=== PATIENT | male | born 1980 | race Two or more races ===

== ENCOUNTER 2023-01-11 10:03 | Emergency (ER) | payer MEDICAID ==
[~2023-01-11] VITALS: Ht 172.7 cm; Wt 77.3 kg
[2023-01-11 10:20] VITALS: TEMP 98.5
[2023-01-11] MEDS ORDERED: MIRT-92 PO (10:22)
[2023-01-11] MEDS ORDERED: GABA-1181 PO (10:22)
[2023-01-11] MEDS ORDERED: HYDR-4808 PO (10:22)
[2023-01-11] MEDS ORDERED: LORazepam 1 MG TABLET PO ONE (13:30)
[2023-01-11] MEDS ORDERED: CHLO10CA7 PO (14:06)
[2023-01-11 14:28] VITALS: BP 111/77; PULSE 81; RESP 16
== END 2023-01-11 14:31 | disposition home or self-care (01) ==
LOC: EMS 10:08
DX: F10.20 Alcohol dependence, uncomplicated (principal); F41.9 Anxiety disorder, unspecified
CPT/HCPCS: 99283

== ENCOUNTER 2023-01-13 18:18 | Emergency (ER) | payer MEDICAID ==
[~2023-01-13] VITALS: Ht 172.7 cm; Wt 77.3 kg
[~2023-01-13 18:18] MED LIST: CHLO10CA7 PO; GABA-1181 PO; HYDR-4808 PO; MIRT-92 PO
[2023-01-13 18:24] VITALS: BP 124/93; PULSE 124; RESP 18; TEMP 98
== END 2023-01-13 19:55 | disposition left against medical advice (07) ==
LOC: EMS 18:19
DX: R00.2 Palpitations (principal); Z53.21 Procedure and treatment not carried out due to patient leaving prior to being seen by health care provider
CPT/HCPCS: 99281; Z7502

== ENCOUNTER 2023-02-06 13:02 | Emergency (ER) | payer MEDICAID ==
[~2023-02-06] VITALS: Ht 170.2 cm; Wt 77.3 kg
[2023-02-06 13:12] VITALS: TEMP 98.4
[2023-02-06 14:54] LABS: BASOPHILS % (AUTO) 0.4 % (0.0-2.0); EOSINOPHILS % (AUTO) 2.6 % (1.0-6.0); HEMATOCRIT 42.1 % (41-53); LYMPHOCYTES # (AUTO) 1.3 K/uL (1.0-4.8); LYMPHOCYTES % (AUTO) 22.9 % (22.0-44.0); MEAN CORPUSCULAR HEMOGLOBIN 30.2 pg (26.0-34.0); MEAN CORPUSCULAR HGB CONC 33.3 G/dL (31.0-37.0); MEAN CORPUSCULAR VOLUME 91 fL (80-100); MONOCYTES # (AUTO) 0.4 K/uL (0.1-1.0); MONOCYTES % (AUTO) 6.8 % (2.0-9.0); NEUTROPHILS # (AUTO) 3.7 K/uL (1.8-7.7); NEUTROPHILS % (AUTO) 67.3 % (40.0-70.0); PLATELET COUNT (AUTO) 198 K/uL (150-450); RED BLOOD CELL COUNT(AUTO) 4.65 MIL/uL (4.50-5.90); RED CELL DISTRIBUTION WIDTH 12.9 % (11.5-14.5); WHITE BLOOD COUNT (AUTO) 5.5 K/uL (4.5-11.0)
[2023-02-06 15:10] LABS: ANION GAP 7 mmol/L (8-16); CALCIUM, TOTAL 8.3 mg/dL (8.8-10.5); CARBON DIOXIDE 29 mmol/L (22-29); CHLORIDE 105 mmol/L (98-107); CREATININE 1.05 mg/dL (0.60-1.30); GLOMERULAR FILTR. RATE CALC > 60 mL/min (>60); GLUCOSE,RANDOM 95 mg/dL (70-110); POTASSIUM 4.3 mmol/L (3.5-5.1); SODIUM SERUM 141 mmol/L (136-145); UREA NITROGEN, BLOOD 9 mg/dL (7-18)
[2023-02-06 15:12] LABS: ALANINE AMINOTRANSFERASE 24 U/L (12-78); ALBUMIN 3.5 g/dL (3.4-5.0); ALKALINE PHOSPHATASE 53 U/L (46-116); ASPARTATE AMINOTRANSFERASE 19 U/L (15-37); BILIRUBIN,TOTAL 0.1 mg/dL (0.1-1.0); TOTAL PROTEIN, SERUM 6.4 g/dL (6.4-8.2)
[2023-02-06 15:13] LABS: ALCOHOL, BLOOD (SERUM) < 3 mg/dL (0-10)
[2023-02-06] MEDS ORDERED: ChlordiazePOXIDE HCL 25 MG CAPSULE PO ONE (15:30)
[2023-02-06 18:04] VITALS: BP 128/75; PULSE 98; RESP 20
== END 2023-02-06 18:09 | disposition home or self-care (01) ==
LOC: EMS 13:13
DX: F41.9 Anxiety disorder, unspecified (principal); F10.20 Alcohol dependence, uncomplicated; F15.90 Other stimulant use, unspecified, uncomplicated; Y90.9 Presence of alcohol in blood, level not specified
CPT/HCPCS: 99283; 80053; 83735; 85025; 36415; G0480

== ENCOUNTER 2025-03-19 00:29 | Emergency (ER) | payer MEDICAID ==
[~2025-03-19] VITALS: Ht 172.7 cm; Wt 84.1 kg
[2025-03-19 02:02] LABS: PLATELET COUNT (AUTO) 125 K/uL (150-450); RED BLOOD CELL COUNT(AUTO) 5.23 MIL/uL (4.50-5.90); RED CELL DISTRIBUTION WIDTH 13.0 % (11.5-14.5); WHITE BLOOD COUNT (AUTO) 8.8 K/uL (4.5-11.0)
[2025-03-19 02:10] LABS: CALCIUM, TOTAL 7.8 mg/dL (8.8-10.5); CREATININE 1.14 mg/dL (0.60-1.30); GLOMERULAR FILTR. RATE CALC > 60 mL/min (>60); GLUCOSE,RANDOM 112 mg/dL (70-110); SODIUM SERUM 141 mmol/L (136-145); UREA NITROGEN, BLOOD 11 mg/dL (7-18)
[2025-03-19] MEDS: ACETAMINOPHEN 500 MG TABLET PO ONE (02:20)
[2025-03-19] MEDS ORDERED: GABA-1181 PO (02:53)
[2025-03-19 03:00] VITALS: BP 135/86; PULSE 88; RESP 17; TEMP 97.3; O2SAT 100
== END 2025-03-19 03:50 | disposition home or self-care (01) ==
LOC: EMS 00:30
DX: F10.239 Alcohol dependence with withdrawal, unspecified (principal); F41.9 Anxiety disorder, unspecified; F15.90 Other stimulant use, unspecified, uncomplicated; Y90.9 Presence of alcohol in blood, level not specified
CPT/HCPCS: 99283; 80048; 83735; 85025; 36415; G0480